=== PATIENT | male | born 1940 | race Caucasian/White ===

== ENCOUNTER 2022-12-05 17:16 | Emergency (ER) | payer MEDICARE, BC ==
[2022-12-05 18:26] LABS: ALT (SGPT) 17 U/L (8-55); AST (SGOT) 20 U/L (5-34); Alkaline Phosphatase 110 U/L (40-110); Anion Gap 12 mmol/L (10-20); BUN (Urea Nitrogen) 21 mg/dL (8.4-25.7); Bilirubin, Total 1.2 mg/dL (0.2-1.2); Calc. Creatinine Clearance 0 mL/min (70-130); Calcium 9.3 mg/dL (7.8-10.44); Carbon Dioxide 24 mmol/L (23-31); Chloride 107 mmol/L (98-107); Estimated GFR 76; Glucose 100 mg/dL (83-110); Magnesium 2.1 mg/dL (1.6-2.6); Potassium 4.5 mmol/L (3.5-5.1); Sodium 138 mmol/L (136-145)
[2022-12-05 18:46] LABS: Hemoglobin 14.8 g/dL (13.5-17.5); Mean Corpuscular HGB CONC 34.5 g/dL (32.0-36.0); Mean Corpuscular Hemoglobin 32.7 pg (27.0-33.0); Mean Corpuscular Volume 94.9 fl (81.2-95.1); Mean Platelet Volume 8.3 fl (7.4-10.4); Platelet Count 184 10x3/uL (150-450); RBC Distribution Width 12.7 % (11.5-14.5); Red Blood Cell (RBC) Count 4.52 10x6/uL (4.32-5.72); White Blood Cell (WBC) Count 6.7 10x3/uL (3.5-10.5)
[2022-12-05 19:26] LABS: Band 4 % (5-11); Eosinophils 1 % (0-10); Lymphocytes 23 % (21-51); Monocytes 3 % (0-10); Neutrophil 53 % (42-75); Reactive Lymphocytes 16 % (0-10)
[2022-12-05 19:29] LABS: Large Platelets SLIGHT; Platelet Clumps SLIGHT; Platelet Morphology Comment Appears Adequate
[2022-12-05 19:30] LABS: MDiff Complete? YES; RBC Morphology Normal
== END 2022-12-05 19:17 | disposition home or self-care (01) ==
LOC: CSHERS 17:16
DX: R07.89 Other chest pain (principal)
CPT/HCPCS: 71045; 80053; 83735; 83880; 84484; 85025; 93005

== ENCOUNTER 2023-08-02 10:35 | Emergency (ER) | payer BC, MEDICARE ==
[2023-08-02] MEDS ORDERED: Iopamidol 300 61% 100 ML VIAL FS ONE (11:41)
[2023-08-02 12:40] LABS: Bilirubin Neg (Negative); Blood, Urine 250 (Negative); Glucose, Urine (Dipstick) Normal (Negative); Ketone, Urine 15 mg/dL (Negative); Leukocyte 25 (Negative); Nitrite Negative (Negative); Protein, Urine (Dipstick) 30 mg/dl (Neg-Trace)
[2023-08-02 12:50] LABS: Hemoglobin 14.2 g/dL (13.5-17.5); Mean Corpuscular HGB CONC 34.6 g/dL (32.0-36.0); Mean Corpuscular Hemoglobin 33.1 pg (27.0-33.0); Mean Corpuscular Volume 95.6 fl (81.2-95.1); Mean Platelet Volume 8.5 fl (7.4-10.4); Platelet Count 153 10x3/uL (150-450); RBC Distribution Width 12.4 % (11.5-14.5); Red Blood Cell (RBC) Count 4.29 10x6/uL (4.32-5.72); White Blood Cell (WBC) Count 12.1 10x3/uL (3.5-10.5)
[2023-08-02 12:53] LABS: ALT (SGPT) 12 U/L (8-55); AST (SGOT) 18 U/L (5-34); Albumin 3.8 g/dL (3.4-4.8); Alkaline Phosphatase 89 U/L (40-110); Anion Gap 15 mmol/L (10-20); BUN (Urea Nitrogen) 19 mg/dL (8.4-25.7); Bilirubin, Total 1.8 mg/dL (0.2-1.2); Calc. Creatinine Clearance 0 mL/min (70-130); Calcium 9.4 mg/dL (7.8-10.44); Carbon Dioxide 19 mmol/L (23-31); Chloride 103 mmol/L (98-107); Estimated GFR 72; Glucose 101 mg/dL (83-110); Potassium 4.2 mmol/L (3.5-5.1); Protein, Total 5.8 g/dL (5.8-8.1); Sodium 133 mmol/L (136-145)
[2023-08-02 13:02] LABS: Clarity Cloudy (Clear)
[2023-08-02 13:16] LABS: CAUTI Indications for Culture Pelvic or flank pain; RBC/HPF Greater than 50 HPF (0-3); Renal Epithelial 0-3 HPF (None Seen); Squamous Epithelial 0-3 HPF (0-3)
[2023-08-02 13:17] LABS: Bacteria/HPF 2+ HPF (None Seen); Calcium Oxalate Crystals Rare HPF (None Seen); Sperm/HPF Rare HPF (None Seen); Urine Culture Reflex No No
[2023-08-02 13:32] LABS: Band 5 % (5-11); Eosinophils 1 % (0-10); Lymphocytes 8 % (21-51); Monocytes 7 % (0-10); Neutrophil 63 % (42-75); Reactive Lymphocytes 16 % (0-10)
[2023-08-02 13:40] LABS: Platelet Adequacy Comment Appears Adequate; RBC Morph Comment Within Normal Limits
[2023-08-02 13:46] LABS: Reflex for Review?? YES
[2023-08-02 13:53] LABS: MDiff Complete? YES
[2023-08-02] MEDS ORDERED: Mineral Oil ENEMA ONE (14:00)
[2023-08-02] MEDS ORDERED: Fleet Saline Enema 133 ML BOT PR SCH (14:15)
== END 2023-08-02 15:22 | disposition home or self-care (01) ==
LOC: CSHERS 10:35
DX: N13.6 Pyonephrosis (principal); K56.41 Fecal impaction; R33.9 Retention of urine, unspecified; I48.91 Unspecified atrial fibrillation; E16.2 Hypoglycemia, unspecified
CPT/HCPCS: 36415; 51702; 74177; 80053; 81001; 85025; 85060; Q9967

== ENCOUNTER 2023-08-07 09:06 | Outpatient (CLI) | payer BC, MEDICARE ==
[~2023-08-07 09:06] MED LIST: Magnevist 469MG/ML 20 ML VIAL ONE
== END 2023-08-07 09:07 | disposition home or self-care (01) ==
LOC: CSHMRI 09:06
PROVIDERS: ATTEND Psychiatry & Neurology Neurology
DX: M48.061 Spinal stenosis, lumbar region without neurogenic claudication (principal); M47.816 Spondylosis without myelopathy or radiculopathy, lumbar region; M51.36 Other intervertebral disc degeneration, lumbar region; M43.17 Spondylolisthesis, lumbosacral region; M48.9 Spondylopathy, unspecified; M48.07 Spinal stenosis, lumbosacral region
CPT/HCPCS: 72158; A9579

== ENCOUNTER 2023-08-11 10:01 | Inpatient (IN) | payer BC, MEDICARE ==
[~2023-08-11 10:01] MED LIST changes: +Iopamidol 300 61% 100 ML VIAL FS ONE; -Magnevist 469MG/ML 20 ML VIAL ONE
[2023-08-11 11:03] LABS: Hematocrit 40.8 % (38.8-50.0); Hemoglobin 14.2 g/dL (13.5-17.5); Mean Corpuscular HGB CONC 34.8 g/dL (32.0-36.0); Mean Corpuscular Hemoglobin 32.6 pg (27.0-33.0); Mean Corpuscular Volume 93.6 fl (81.2-95.1); Mean Platelet Volume 8.3 fl (7.4-10.4); Platelet Count 169 10x3/uL (150-450); RBC Distribution Width 11.9 % (11.5-14.5); Red Blood Cell (RBC) Count 4.36 10x6/uL (4.32-5.72); White Blood Cell (WBC) Count 29.6 10x3/uL (3.5-10.5)
[2023-08-11] MEDS ORDERED: Acetaminophen 325 MG TAB ONE ×2 (11:12→16:20)
[2023-08-11 11:19] LABS: INR-International Normal Ratio 1.2; PTT 31.9 sec (22.0-33.0); Prothrombin Time 12.4 sec (9.5-12.1)
[2023-08-11 11:25] LABS: Platelet Adequacy Comment Appears Adequate; RBC Morph Comment Within Normal Limits
[2023-08-11 11:32] LABS: Band 7 % (5-11)
[2023-08-11 11:33] LABS: ALT (SGPT) 42 U/L (8-55); AST (SGOT) 43 U/L (5-34); Albumin 3.4 g/dL (3.4-4.8); Alkaline Phosphatase 138 U/L (40-110); Anion Gap 12 mmol/L (10-20); BUN (Urea Nitrogen) 16 mg/dL (8.4-25.7); Bilirubin, Total 3.2 mg/dL (0.2-1.2); Calc. Creatinine Clearance 0 mL/min (70-130); Calcium 8.8 mg/dL (7.8-10.44); Carbon Dioxide 23 mmol/L (23-31); Chloride 96 mmol/L (98-107); Estimated GFR 88; Glucose 105 mg/dL (83-110); Lymphocytes 2 % (21-51); Magnesium 1.7 mg/dL (1.6-2.6); Monocytes 4 % (0-10); Neutrophil 80 % (42-75); Potassium 3.8 mmol/L (3.5-5.1); Protein, Total 5.4 g/dL (5.8-8.1); Reactive Lymphocytes 7 % (0-10); Sodium 127 mmol/L (136-145)
[2023-08-11 11:38] LABS: Troponin I Less than 0.010 ng/mL (< 0.028)
[2023-08-11 11:47] LABS: Bilirubin 1+ (Negative); Blood, Urine 250 (Negative); Glucose, Urine (Dipstick) Normal (Negative); Ketone, Urine 50 mg/dL (Negative); Leukocyte 500 (Negative); Nitrite Positive (Negative); Protein, Urine (Dipstick) 100 mg/dl (Neg-Trace); Specific Gravity, Urine 1.015 (1.005-1.030); Urobilinogen 12 mg/dL (Less than 2); pH, Urine 6.5 (5.0-9.0)
[2023-08-11 11:50] LABS: Clarity Cloudy (Clear)
[2023-08-11 11:59] LABS: Bacteria/HPF 3+ HPF (None Seen); CAUTI Indications for Culture Alt mental st,lethar; WBC/HPF Greater Than 50 HPF (0-3)
[2023-08-11 12:02] LABS: Urine Culture Reflex Yes Yes
[2023-08-11 12:09] LABS: Actual Bicarbonate (HCO3v) 23.6 mEq/L (22-28); Base Excess -0.6 mEq/L (-2 - +2); Calcium, Ionized (venous) 1.17 mmol/L (1.16-1.32); Chloride (VBG) 95 mmol/L (98-106); Hematocrit-VBG 45 % (42.0-52.0); Hemoglobin (Hb) 15.3 g/dL (12.6-17.4); Potassium (VBG) 3.68 mmol/L (3.70-5.30); Puncture Site Other Site; RapidComm Collect By LAB; Sodium 129 mmol/L (133-146); pH (venous) 7.414 (7.32-7.43)
[2023-08-11 12:26] LABS: SARS-CoV-2 NAA Rapid Test Not Detected (NotDetected)
[2023-08-11] MEDS ORDERED: Piperacillin/Tazobactam 3.375 GM VIAL ONE (12:26)
[2023-08-11] MEDS ORDERED: Vancomycin 1.5 GRAM/300 ML BAG 1.5 GM in Premix 1 BAG IVPB SCH (12:45)
[2023-08-11] MEDS ORDERED: Acetaminophen 650 MG Suppository PR PRN (16:00)
[2023-08-11] MEDS ORDERED: Senokot S 8.6-50 MG TAB PO PRN (16:00)
[2023-08-11] MEDS ORDERED: HYDROcodone/Acetaminophen 5/325 mg Tablet PO PRN (16:00)
[2023-08-11] MEDS ORDERED: Vancomycin 1 GM in Premix 1 BAG IVPB SCH (16:15)
[2023-08-11] MEDS: Sodium Chloride 0.9% 1,000 ML IV SCH ×2 (16:55→23:16)
[2023-08-11] MEDS ORDERED: Piperacillin/Tazobactam 3.375 GM in Sodium Chloride 0.9% 100 ML IVPB SCH (17:00)
[2023-08-11 17:39] VITALS: BMI 25.1
[2023-08-11] MEDS ORDERED: Meropenem 1 GM in Sodium Chloride 0.9% 100 ML IVPB SCH ×2 (18:00→22:00)
[2023-08-11] MEDS: Famotidine 20 MG TAB PO SCH (20:26)
[2023-08-11] MEDS ORDERED: Communication Order-Pharmacy FS ONE (20:36)
[2023-08-11] MEDS: Flecainide 50 MG TAB PO SCH (20:54)
[2023-08-11] MEDS: Acetaminophen 325 MG TAB PO PRN (22:00)
[2023-08-11] MEDS ORDERED: QUEtiapine 25 MG TAB PO SCH (22:45)
[2023-08-12] MEDS: Meropenem 1 GM in Sodium Chloride 0.9% 100 ML IVPB SCH ×3 (02:11→17:01)
[2023-08-12] MEDS ORDERED: Ziprasidone 20 MG VIAL IM SCH (04:00)
[2023-08-12] MEDS ORDERED: Sterile Water 10 ML VIAL FS PRN (04:00)
[2023-08-12 04:21] LABS: Anion Gap 11 mmol/L (10-20); BUN (Urea Nitrogen) 14 mg/dL (8.4-25.7); Calc. Creatinine Clearance 94 mL/min (70-130); Calcium 8.3 mg/dL (7.8-10.44); Carbon Dioxide 19 mmol/L (23-31); Chloride 101 mmol/L (98-107); Estimated GFR 93; Glucose 79 mg/dL (83-110); Potassium 3.4 mmol/L (3.5-5.1); Sodium 128 mmol/L (136-145)
[2023-08-12 04:30] LABS: Hematocrit 34.7 % (38.8-50.0); Hemoglobin 12.1 g/dL (13.5-17.5); Mean Corpuscular HGB CONC 34.9 g/dL (32.0-36.0); Mean Corpuscular Hemoglobin 32.9 pg (27.0-33.0); Mean Corpuscular Volume 94.3 fl (81.2-95.1); Mean Platelet Volume 8.6 fl (7.4-10.4); Platelet Count 151 10x3/uL (150-450); Red Blood Cell (RBC) Count 3.68 10x6/uL (4.32-5.72); White Blood Cell (WBC) Count 28.6 10x3/uL (3.5-10.5)
[2023-08-12 04:42] LABS: MDiff Complete? YES
[2023-08-12 05:06] LABS: Magnesium 1.7 mg/dL (1.6-2.6)
[2023-08-12 05:57] LABS: Eosinophils 2 % (0-10); Lymphocytes 8 % (21-51); Monocytes 2 % (0-10); Neutrophil 81 % (42-75); Reactive Lymphocytes 7 % (0-10)
[2023-08-12 06:01] LABS: Platelet Adequacy Comment Appears Adequate; RBC Morph Comment Within Normal Limits
[2023-08-12] MEDS ORDERED: Magnesium 2 GM/50 ML(in water) 2 GM in Premix 1 BAG IVPB SCH (06:15)
[2023-08-12] MEDS ORDERED: Electrolyte Replacement Protocol 1 EACH FS SCH (06:15)
[2023-08-12] MEDS: Potassium Chloride 20 MEQ TAB PO SCH ×2 (06:45→12:22)
[2023-08-12] MEDS: Flecainide 50 MG TAB PO SCH ×2 (08:29→21:34)
[2023-08-12] MEDS: Famotidine 20 MG TAB PO SCH ×2 (08:30→21:35)
[2023-08-12] MEDS: Sodium Chloride 0.9% 1,000 ML IV SCH ×2 (09:18→21:35)
[2023-08-12] MEDS ORDERED: Electrolyte Replacement Protocol FS PRN (11:30)
[2023-08-12] MEDS ORDERED: QUEtiapine 25 MG TAB PO SCH (21:00)
[2023-08-13] MEDS: Meropenem 1 GM in Sodium Chloride 0.9% 100 ML IVPB SCH ×3 (03:02→19:43)
[2023-08-13 06:19] LABS: Anion Gap 14 mmol/L (10-20); BUN (Urea Nitrogen) 17 mg/dL (8.4-25.7); Calc. Creatinine Clearance 96 mL/min (70-130); Calcium 8.3 mg/dL (7.8-10.44); Carbon Dioxide 17 mmol/L (23-31); Chloride 106 mmol/L (98-107); Estimated GFR 94; Glucose 67 mg/dL (83-110); Potassium 4.1 mmol/L (3.5-5.1); Sodium 133 mmol/L (136-145)
[2023-08-13 06:22] LABS: Hematocrit 38.1 % (38.8-50.0); Hemoglobin 13.1 g/dL (13.5-17.5); Mean Corpuscular HGB CONC 34.4 g/dL (32.0-36.0); Mean Corpuscular Hemoglobin 32.7 pg (27.0-33.0); Mean Platelet Volume 8.6 fl (7.4-10.4); Platelet Count 159 10x3/uL (150-450); RBC Distribution Width 12.2 % (11.5-14.5); Red Blood Cell (RBC) Count 4.01 10x6/uL (4.32-5.72); White Blood Cell (WBC) Count 18.5 10x3/uL (3.5-10.5)
[2023-08-13 07:26] LABS: Band 4 % (5-11); Eosinophils 4 % (0-10); Lymphocytes 24 % (21-51); Monocytes 5 % (0-10); Reactive Lymphocytes 1 % (0-10)
[2023-08-13 07:27] LABS: Platelet Adequacy Comment Appears Adequate; RBC Morph Comment Within Normal Limits
[2023-08-13] MEDS: Famotidine 20 MG TAB PO SCH ×3 (08:48→20:32)
[2023-08-13] MEDS: Flecainide 50 MG TAB PO SCH ×3 (08:48→20:32)
[2023-08-13] MEDS ORDERED: Amlodipine 5 MG TAB PO SCH (09:00)
[2023-08-13] MEDS: Sodium Chloride 0.9% 1,000 ML IV SCH ×2 (09:11→12:00)
[2023-08-13] MEDS: Apixaban 5 MG TAB PO SCH (09:18)
[2023-08-13] MEDS: hydrALAZINE 20 MG/ML VIAL SLOW IVP PRN (09:51)
[2023-08-13] MEDS ORDERED: Amlodipine 10 MG TAB PO SCH (10:00)
[2023-08-13 14:32] LABS: Hematocrit 37.8 % (38.8-50.0); Hemoglobin 13.1 g/dL (13.5-17.5)
[2023-08-13] MEDS: QUEtiapine 100 MG TAB PO SCH (20:32)
[2023-08-13] MEDS: Atorvastatin Calcium 10 MG TAB PO SCH (20:32)
[2023-08-13] MEDS ORDERED: Vancomycin 1.5 GRAM/300 ML BAG 1.5 GM in Premix 1 BAG IVPB SCH (23:00)
[2023-08-14 01:22] LABS: Hematocrit 34.3 % (38.8-50.0); Hemoglobin 12.1 g/dL (13.5-17.5)
[2023-08-14] MEDS: Meropenem 1 GM in Sodium Chloride 0.9% 100 ML IVPB SCH ×3 (01:38→18:43)
[2023-08-14] MEDS: Sodium Chloride 0.9% 1,000 ML IV SCH ×3 (01:38→21:44)
[2023-08-14 05:28] LABS: Hematocrit 35.6 % (38.8-50.0); Hemoglobin 12.4 g/dL (13.5-17.5); Mean Corpuscular HGB CONC 34.8 g/dL (32.0-36.0); Mean Corpuscular Hemoglobin 32.7 pg (27.0-33.0); Mean Corpuscular Volume 93.9 fl (81.2-95.1); Mean Platelet Volume 8.4 fl (7.4-10.4); Platelet Count 201 10x3/uL (150-450); RBC Distribution Width 12.1 % (11.5-14.5); Red Blood Cell (RBC) Count 3.79 10x6/uL (4.32-5.72); White Blood Cell (WBC) Count 12.4 10x3/uL (3.5-10.5)
[2023-08-14 05:52] LABS: Anion Gap 13 mmol/L (10-20); BUN (Urea Nitrogen) 15 mg/dL (8.4-25.7); Calc. Creatinine Clearance 107 mL/min (70-130); Calcium 8.2 mg/dL (7.8-10.44); Carbon Dioxide 20 mmol/L (23-31); Chloride 106 mmol/L (98-107); Estimated GFR 97; Glucose 72 mg/dL (83-110); Potassium 3.7 mmol/L (3.5-5.1); Sodium 135 mmol/L (136-145)
[2023-08-14 06:25] LABS: MDiff Complete? YES
[2023-08-14 06:28] LABS: Eosinophils 4 % (0-10); Lymphocytes 27 % (21-51); Monocytes 10 % (0-10); Neutrophil 58 % (42-75); Reactive Lymphocytes 1 % (0-10)
[2023-08-14 06:30] LABS: Platelet Adequacy Comment Appears Adequate
[2023-08-14 06:31] LABS: RBC Morph Comment Within Normal Limits
[2023-08-14] MEDS: Flecainide 50 MG TAB PO SCH ×2 (09:34→21:45)
[2023-08-14] MEDS: Amlodipine 10 MG TAB PO SCH (09:35)
[2023-08-14] MEDS: Apixaban 5 MG TAB PO SCH ×2 (09:35→21:45)
[2023-08-14] MEDS: hydrALAZINE 25 MG TAB PO SCH ×3 (09:35→21:45)
[2023-08-14] MEDS: Famotidine 20 MG TAB PO SCH ×2 (09:39→21:45)
[2023-08-14] MEDS: Vancomycin 1 GM in Sodium Chloride 0.9% 250 ML 250 ML IVPB SCH ×2 (12:43→22:24)
[2023-08-14 13:29] LABS: Hematocrit 35.5 % (38.8-50.0); Hemoglobin 12.3 g/dL (13.5-17.5)
[2023-08-14] MEDS: QUEtiapine 100 MG TAB PO SCH (21:45)
[2023-08-14] MEDS: Atorvastatin Calcium 10 MG TAB PO SCH (21:45)
[2023-08-15] MEDS: Meropenem 1 GM in Sodium Chloride 0.9% 100 ML IVPB SCH ×3 (01:16→18:12)
[2023-08-15 05:29] LABS: Anion Gap 12 mmol/L (10-20); BUN (Urea Nitrogen) 12 mg/dL (8.4-25.7); Calc. Creatinine Clearance 115 mL/min (70-130); Carbon Dioxide 18 mmol/L (23-31); Chloride 106 mmol/L (98-107); Estimated GFR 99; Glucose 83 mg/dL (83-110); Potassium 3.4 mmol/L (3.5-5.1); Sodium 133 mmol/L (136-145)
[2023-08-15 05:30] LABS: Hematocrit 34.6 % (38.8-50.0); Hemoglobin 11.9 g/dL (13.5-17.5); Mean Corpuscular HGB CONC 34.4 g/dL (32.0-36.0); Mean Corpuscular Hemoglobin 32.4 pg (27.0-33.0); Mean Corpuscular Volume 94.3 fl (81.2-95.1); Platelet Count 193 10x3/uL (150-450); RBC Distribution Width 12.3 % (11.5-14.5); Red Blood Cell (RBC) Count 3.67 10x6/uL (4.32-5.72); White Blood Cell (WBC) Count 10.2 10x3/uL (3.5-10.5)
[2023-08-15 06:18] LABS: MDiff Complete? YES
[2023-08-15 06:22] LABS: Band 9 % (5-11); Eosinophils 3 % (0-10); Lymphocytes 29 % (21-51); Monocytes 6 % (0-10); Neutrophil 49 % (42-75); Reactive Lymphocytes 4 % (0-10)
[2023-08-15 06:25] LABS: Platelet Adequacy Comment Appears Adequate; RBC Morph Comment Within Normal Limits
[2023-08-15] MEDS: Sodium Chloride 0.9% 1,000 ML IV SCH ×2 (07:28→11:59)
[2023-08-15] MEDS: Apixaban 5 MG TAB PO SCH ×2 (08:55→21:31)
[2023-08-15] MEDS: Amlodipine 10 MG TAB PO SCH (08:55)
[2023-08-15] MEDS: Flecainide 50 MG TAB PO SCH ×2 (08:55→21:31)
[2023-08-15] MEDS: Famotidine 20 MG TAB PO SCH ×2 (08:55→21:32)
[2023-08-15] MEDS: hydrALAZINE 25 MG TAB PO SCH ×3 (08:55→21:31)
[2023-08-15] MEDS ORDERED: Potassium Chloride 20 MEQ TAB PO SCH (09:00)
[2023-08-15 10:07] LABS: Vancomycin, Trough 9.7 ug/mL
[2023-08-15] MEDS ORDERED: VANCOMYCIN 1.25 GM/250 ML BAG 1.25 GM in Premix 1 BAG IVPB SCH (11:00)
[2023-08-15] MEDS ORDERED: QUEtiapine 25 MG TAB PO SCH (21:00)
[2023-08-15] MEDS: Atorvastatin Calcium 10 MG TAB PO SCH (21:31)
[2023-08-16] MEDS: Meropenem 1 GM in Sodium Chloride 0.9% 100 ML IVPB SCH ×3 (02:05→18:01)
[2023-08-16] MEDS: Acetaminophen 325 MG TAB PO PRN (04:04)
[2023-08-16 06:37] LABS: ALT (SGPT) 31 U/L (8-55); AST (SGOT) 32 U/L (5-34); Albumin 2.6 g/dL (3.4-4.8); Alkaline Phosphatase 86 U/L (40-110); Anion Gap 12 mmol/L (10-20); BUN (Urea Nitrogen) 10 mg/dL (8.4-25.7); Bilirubin, Total 1.1 mg/dL (0.2-1.2); Calc. Creatinine Clearance 105 mL/min (70-130); Calcium 8.3 mg/dL (7.8-10.44); Carbon Dioxide 23 mmol/L (23-31); Chloride 102 mmol/L (98-107); Estimated GFR 97; Globulin 1.8 g/dL (2.4-3.5); Glucose 103 mg/dL (83-110); Potassium 3.6 mmol/L (3.5-5.1); Protein, Total 4.4 g/dL (5.8-8.1); Sodium 133 mmol/L (136-145)
[2023-08-16 06:54] LABS: Hematocrit 35.8 % (38.8-50.0); Hemoglobin 12.6 g/dL (13.5-17.5); Mean Corpuscular HGB CONC 35.2 g/dL (32.0-36.0); Mean Corpuscular Hemoglobin 32.9 pg (27.0-33.0); Mean Corpuscular Volume 93.5 fl (81.2-95.1); Mean Platelet Volume 8.6 fl (7.4-10.4); Platelet Count 238 10x3/uL (150-450); Red Blood Cell (RBC) Count 3.83 10x6/uL (4.32-5.72)
[2023-08-16] MEDS: Famotidine 20 MG TAB PO SCH ×2 (08:10→22:26)
[2023-08-16] MEDS: Amlodipine 10 MG TAB PO SCH (08:10)
[2023-08-16] MEDS: Flecainide 50 MG TAB PO SCH ×2 (08:10→22:27)
[2023-08-16] MEDS: Apixaban 5 MG TAB PO SCH ×2 (08:10→22:27)
[2023-08-16] MEDS: hydrALAZINE 25 MG TAB PO SCH ×3 (08:10→22:27)
[2023-08-16 08:20] LABS: MDiff Complete? YES
[2023-08-16 10:36] LABS: Eosinophils 2 % (0-10); Monocytes 5 % (0-10)
[2023-08-16 10:39] LABS: Band 1 % (5-11); Lymphocytes 27 % (21-51); Neutrophil 62 % (42-75); Reactive Lymphocytes 3 % (0-10)
[2023-08-16 10:40] LABS: Platelet Adequacy Comment Appears Adequate; RBC Morph Comment Within Normal Limits
[2023-08-16 21:57] LABS: Vancomycin, Trough 4.5 ug/mL
[2023-08-16] MEDS: Atorvastatin Calcium 10 MG TAB PO SCH (22:27)
[2023-08-16] MEDS ORDERED: Haloperidol Lactate 5 MG/ML VIAL IM SCH (23:45)
[2023-08-17] MEDS: Meropenem 1 GM in Sodium Chloride 0.9% 100 ML IVPB SCH ×3 (02:33→17:03)
[2023-08-17] MEDS: hydrALAZINE 20 MG/ML VIAL SLOW IVP PRN (04:55)
[2023-08-17 06:19] LABS: Hematocrit 36.8 % (38.8-50.0); Platelet Count 298 10x3/uL (150-450)
[2023-08-17] MEDS: hydrALAZINE 25 MG TAB PO SCH ×3 (09:41→22:40)
[2023-08-17] MEDS: Flecainide 50 MG TAB PO SCH ×2 (09:42→22:39)
[2023-08-17] MEDS: Famotidine 20 MG TAB PO SCH ×2 (09:43→22:40)
[2023-08-17] MEDS: Amlodipine 10 MG TAB PO SCH (09:43)
[2023-08-17] MEDS: Folic Acid 1 MG TAB PO SCH (09:44)
[2023-08-17] MEDS: Thiamine 100 MG TAB PO SCH (09:44)
[2023-08-17] MEDS: Apixaban 5 MG TAB PO SCH ×3 (09:44→23:30)
[2023-08-17] MEDS: Atorvastatin Calcium 10 MG TAB PO SCH (22:40)
[2023-08-18] MEDS: Meropenem 1 GM in Sodium Chloride 0.9% 100 ML IVPB SCH ×3 (02:43→18:25)
[2023-08-18] MEDS: hydrALAZINE 20 MG/ML VIAL SLOW IVP PRN ×2 (02:48→16:01)
[2023-08-18] MEDS: Famotidine 20 MG TAB PO SCH ×3 (09:09→23:19)
[2023-08-18] MEDS: hydrALAZINE 25 MG TAB PO SCH ×5 (09:09→23:19)
[2023-08-18] MEDS: Flecainide 50 MG TAB PO SCH ×4 (09:09→23:19)
[2023-08-18] MEDS: Atorvastatin Calcium 10 MG TAB PO SCH ×2 (09:10→23:19)
[2023-08-18] MEDS: Amlodipine 10 MG TAB PO SCH ×2 (11:05→11:15)
[2023-08-18] MEDS: Apixaban 5 MG TAB PO SCH ×3 (11:05→23:18)
[2023-08-18] MEDS: Folic Acid 1 MG TAB PO SCH (11:15)
[2023-08-18] MEDS: Thiamine 100 MG TAB PO SCH (11:15)
[2023-08-18] MEDS ORDERED: Multivitamins, Adult 10 ML, Folic Acid 1 MG, Thiamine HCl 100 MG in Dextrose 5 %-0.45 %... IV SCH (13:00)
[2023-08-18] MEDS: D5W-AA 4.25% with LYTES 1,000 ML IV SCH (15:00)
[2023-08-19] MEDS: Meropenem 1 GM in Sodium Chloride 0.9% 100 ML IVPB SCH ×3 (02:47→18:01)
[2023-08-19] MEDS: D5W-AA 4.25% with LYTES 1,000 ML IV SCH ×2 (04:39→16:42)
[2023-08-19] MEDS: Famotidine 20 MG TAB PO SCH ×2 (10:14→22:53)
[2023-08-19] MEDS: Amlodipine 10 MG TAB PO SCH (10:14)
[2023-08-19] MEDS: Apixaban 5 MG TAB PO SCH ×2 (10:14→22:53)
[2023-08-19] MEDS: Flecainide 50 MG TAB PO SCH ×2 (10:15→22:53)
[2023-08-19] MEDS: hydrALAZINE 25 MG TAB PO SCH ×3 (10:15→21:15)
[2023-08-19] MEDS: Atorvastatin Calcium 10 MG TAB PO SCH (22:53)
[2023-08-20] MEDS: Meropenem 1 GM in Sodium Chloride 0.9% 100 ML IVPB SCH ×3 (02:19→17:31)
[2023-08-20 04:41] LABS: ALT (SGPT) 19 U/L (8-55); AST (SGOT) 21 U/L (5-34); Albumin 2.7 g/dL (3.4-4.8); Alkaline Phosphatase 73 U/L (40-110); Anion Gap 9 mmol/L (10-20); BUN (Urea Nitrogen) 17 mg/dL (8.4-25.7); CRP (Inflammatory) 1.64 mg/dL (= or < 0.5); Calc. Creatinine Clearance 105 mL/min (70-130); Calcium 8.4 mg/dL (7.8-10.44); Carbon Dioxide 26 mmol/L (23-31); Chloride 103 mmol/L (98-107); Estimated GFR 97; Globulin 1.6 g/dL (2.4-3.5); Glucose 121 mg/dL (83-110); Phosphorus 3.2 mg/dL (2.3-4.7); Potassium 3.9 mmol/L (3.5-5.1); Protein, Total 4.3 g/dL (5.8-8.1); Sodium 134 mmol/L (136-145)
[2023-08-20 04:43] LABS: Hematocrit 32.8 % (38.8-50.0); Hemoglobin 11.5 g/dL (13.5-17.5); Mean Corpuscular HGB CONC 35.1 g/dL (32.0-36.0); Mean Platelet Volume 8.3 fl (7.4-10.4); Platelet Count 342 10x3/uL (150-450); RBC Distribution Width 12.3 % (11.5-14.5); Red Blood Cell (RBC) Count 3.49 10x6/uL (4.32-5.72); White Blood Cell (WBC) Count 12.1 10x3/uL (3.5-10.5)
[2023-08-20 04:44] LABS: MDiff Complete? YES
[2023-08-20] MEDS: hydrALAZINE 20 MG/ML VIAL SLOW IVP PRN (05:29)
[2023-08-20] MEDS: D5W-AA 4.25% with LYTES 1,000 ML IV SCH ×2 (05:44→12:03)
[2023-08-20 06:05] LABS: Band 1 % (5-11); Eosinophils 4 % (0-10); Lymphocytes 39 % (21-51); Monocytes 4 % (0-10); Neutrophil 48 % (42-75); Reactive Lymphocytes 4 % (0-10)
[2023-08-20 06:13] LABS: Platelet Adequacy Comment Appears Adequate; RBC Morph Comment Within Normal Limits
[2023-08-20] MEDS ORDERED: Magnesium 2 GM/50 ML(in water) 2 GM in Premix 1 BAG IVPB SCH (08:00)
[2023-08-20] MEDS: hydrALAZINE 25 MG TAB PO SCH ×3 (10:15→21:52)
[2023-08-20] MEDS: Famotidine 20 MG TAB PO SCH ×2 (10:16→21:51)
[2023-08-20] MEDS: Apixaban 5 MG TAB PO SCH ×2 (10:16→21:50)
[2023-08-20] MEDS: Flecainide 50 MG TAB PO SCH ×2 (10:16→21:51)
[2023-08-20] MEDS: Amlodipine 10 MG TAB PO SCH (10:16)
[2023-08-20] MEDS: Atorvastatin Calcium 10 MG TAB PO SCH (21:51)
[2023-08-21] MEDS: Meropenem 1 GM in Sodium Chloride 0.9% 100 ML IVPB SCH ×3 (01:41→17:22)
[2023-08-21] MEDS: D5W-AA 4.25% with LYTES 1,000 ML IV SCH (04:02)
[2023-08-21] MEDS: Famotidine 20 MG TAB PO SCH ×2 (08:34→22:42)
[2023-08-21] MEDS: hydrALAZINE 25 MG TAB PO SCH ×3 (08:34→22:41)
[2023-08-21] MEDS: Flecainide 50 MG TAB PO SCH ×2 (08:35→22:41)
[2023-08-21] MEDS: Amlodipine 10 MG TAB PO SCH (08:35)
[2023-08-21] MEDS: Apixaban 5 MG TAB PO SCH ×2 (08:35→22:42)
[2023-08-21] MEDS: Atorvastatin Calcium 10 MG TAB PO SCH (22:42)
[2023-08-22] MEDS: Meropenem 1 GM in Sodium Chloride 0.9% 100 ML IVPB SCH ×3 (01:23→16:58)
[2023-08-22 05:37] LABS: Anion Gap 11 mmol/L (10-20); BUN (Urea Nitrogen) 19 mg/dL (8.4-25.7); CRP (Inflammatory) 0.84 mg/dL (= or < 0.5); Calc. Creatinine Clearance 94 mL/min (70-130); Calcium 8.6 mg/dL (7.8-10.44); Carbon Dioxide 26 mmol/L (23-31); Chloride 102 mmol/L (98-107); Estimated GFR 93; Glucose 93 mg/dL (83-110); Sodium 135 mmol/L (136-145)
[2023-08-22 05:58] LABS: Hematocrit 36.3 % (38.8-50.0); Hemoglobin 12.7 g/dL (13.5-17.5); Mean Corpuscular Hemoglobin 33.6 pg (27.0-33.0); Mean Platelet Volume 8.4 fl (7.4-10.4); Platelet Count 383 10x3/uL (150-450); RBC Distribution Width 12.5 % (11.5-14.5); Red Blood Cell (RBC) Count 3.78 10x6/uL (4.32-5.72); White Blood Cell (WBC) Count 12.1 10x3/uL (3.5-10.5)
[2023-08-22 05:59] LABS: MDiff Complete? YES
[2023-08-22 06:46] LABS: Band 5 % (5-11); Lymphocytes 28 % (21-51); Monocytes 9 % (0-10); Neutrophil 57 % (42-75); Reactive Lymphocytes 1 % (0-10)
[2023-08-22 06:47] LABS: Platelet Adequacy Comment Appears Adequate; RBC Morph Comment Within Normal Limits
[2023-08-22] MEDS: Amlodipine 10 MG TAB PO SCH (08:51)
[2023-08-22] MEDS: hydrALAZINE 25 MG TAB PO SCH ×3 (08:51→22:31)
[2023-08-22] MEDS: Famotidine 20 MG TAB PO SCH ×2 (08:51→22:29)
[2023-08-22] MEDS: Apixaban 5 MG TAB PO SCH ×2 (08:51→22:30)
[2023-08-22] MEDS: Flecainide 50 MG TAB PO SCH ×2 (08:51→22:30)
[2023-08-22] MEDS ORDERED: Lorazepam 2 MG/ML VIAL ONE (16:27)
[2023-08-22] MEDS ORDERED: Lorazepam 2 MG/ML VIAL SLOW IVP SCH (16:45)
[2023-08-22] MEDS: Atorvastatin Calcium 10 MG TAB PO SCH (22:30)
[2023-08-23] MEDS: Meropenem 1 GM in Sodium Chloride 0.9% 100 ML IVPB SCH ×3 (01:38→17:11)
[2023-08-23 04:33] LABS: Hematocrit 35.3 % (38.8-50.0); Hemoglobin 12.2 g/dL (13.5-17.5); Platelet Count 341 10x3/uL (150-450)
[2023-08-23] MEDS: Famotidine 20 MG TAB PO SCH ×2 (09:27→21:23)
[2023-08-23] MEDS: Flecainide 50 MG TAB PO SCH ×2 (09:27→21:23)
[2023-08-23] MEDS: hydrALAZINE 25 MG TAB PO SCH ×3 (09:27→21:24)
[2023-08-23] MEDS: Amlodipine 10 MG TAB PO SCH (09:27)
[2023-08-23] MEDS: Apixaban 5 MG TAB PO SCH ×2 (09:27→21:23)
[2023-08-23] MEDS ORDERED: Sodium Chloride 0.9% 1,000 ML IV SCH (09:30)
[2023-08-23] MEDS: Atorvastatin Calcium 10 MG TAB PO SCH (21:23)
[2023-08-24] MEDS: Meropenem 1 GM in Sodium Chloride 0.9% 100 ML IVPB SCH ×3 (01:24→18:05)
[2023-08-24] MEDS: Flecainide 50 MG TAB PO SCH ×2 (08:07→21:28)
[2023-08-24] MEDS: Famotidine 20 MG TAB PO SCH ×2 (08:08→21:29)
[2023-08-24] MEDS: Apixaban 5 MG TAB PO SCH ×2 (08:08→21:29)
[2023-08-24] MEDS: hydrALAZINE 25 MG TAB PO SCH ×3 (08:08→21:29)
[2023-08-24] MEDS: Amlodipine 10 MG TAB PO SCH (08:09)
[2023-08-24] MEDS: Atorvastatin Calcium 10 MG TAB PO SCH (21:28)
[2023-08-25] MEDS: Acetaminophen 325 MG TAB PO PRN (00:59)
[2023-08-25] MEDS: Meropenem 1 GM in Sodium Chloride 0.9% 100 ML IVPB SCH ×3 (01:00→17:05)
[2023-08-25] MEDS: Flecainide 50 MG TAB PO SCH ×2 (08:33→23:23)
[2023-08-25] MEDS: Apixaban 5 MG TAB PO SCH ×2 (08:33→23:22)
[2023-08-25] MEDS: Amlodipine 10 MG TAB PO SCH (08:33)
[2023-08-25] MEDS: hydrALAZINE 25 MG TAB PO SCH ×3 (08:33→23:24)
[2023-08-25] MEDS: Famotidine 20 MG TAB PO SCH ×2 (08:41→23:23)
[2023-08-25] MEDS: Haloperidol 1 MG TAB PO SCH (23:20)
[2023-08-25] MEDS: Atorvastatin Calcium 10 MG TAB PO SCH (23:23)
[2023-08-26] MEDS: Meropenem 1 GM in Sodium Chloride 0.9% 100 ML IVPB SCH ×3 (02:28→17:33)
[2023-08-26 04:25] LABS: Hematocrit 33.7 % (38.8-50.0); Hemoglobin 11.8 g/dL (13.5-17.5); Platelet Count 300 10x3/uL (150-450)
[2023-08-26] MEDS: hydrALAZINE 25 MG TAB PO SCH ×2 (08:22→15:38)
[2023-08-26] MEDS: Amlodipine 10 MG TAB PO SCH (08:22)
[2023-08-26] MEDS: Flecainide 50 MG TAB PO SCH ×2 (08:26→22:24)
[2023-08-26] MEDS: Apixaban 5 MG TAB PO SCH ×2 (08:26→22:24)
[2023-08-26] MEDS: Famotidine 20 MG TAB PO SCH ×2 (08:26→22:23)
[2023-08-26] MEDS: Ciprofloxacin 500 MG TAB PO SCH (22:22)
[2023-08-26] MEDS: Haloperidol 1 MG TAB PO SCH (22:23)
[2023-08-26] MEDS: Atorvastatin Calcium 10 MG TAB PO SCH (22:23)
[2023-08-27] MEDS ORDERED: Haloperidol Lactate 5 MG/ML VIAL IM SCH (01:30)
[2023-08-27] MEDS ORDERED: Ziprasidone 20 MG VIAL IM SCH (03:00)
[2023-08-27] MEDS ORDERED: Sterile Water 10 ML ONE (03:13)
[2023-08-27] MEDS: Ciprofloxacin 500 MG TAB PO SCH ×2 (05:17→19:34)
[2023-08-27] MEDS: Apixaban 5 MG TAB PO SCH (08:24)
[2023-08-27] MEDS: Flecainide 50 MG TAB PO SCH (08:24)
[2023-08-27] MEDS: Famotidine 20 MG TAB PO SCH ×2 (08:24→19:34)
[2023-08-27] MEDS: hydrALAZINE 20 MG/ML VIAL SLOW IVP PRN (17:23)
[2023-08-27] MEDS: Atorvastatin Calcium 10 MG TAB PO SCH (19:34)
[2023-08-28] MEDS: Ciprofloxacin 500 MG TAB PO SCH ×2 (06:15→20:47)
[2023-08-28] MEDS: Famotidine 20 MG TAB PO SCH ×2 (09:24→20:47)
[2023-08-28] MEDS: Atorvastatin Calcium 10 MG TAB PO SCH (20:48)
[2023-08-29 05:58] LABS: Anion Gap 12 mmol/L (10-20); BUN (Urea Nitrogen) 20 mg/dL (8.4-25.7); Calc. Creatinine Clearance 76 mL/min (70-130); Calcium 9.1 mg/dL (7.8-10.44); Carbon Dioxide 24 mmol/L (23-31); Chloride 102 mmol/L (98-107); Estimated GFR 88; Glucose 99 mg/dL (83-110); Magnesium 1.8 mg/dL (1.6-2.6); Potassium 3.6 mmol/L (3.5-5.1); Sodium 134 mmol/L (136-145)
[2023-08-29 06:21] LABS: Hematocrit 33.2 % (38.8-50.0); Hemoglobin 11.4 g/dL (13.5-17.5); Mean Corpuscular HGB CONC 34.3 g/dL (32.0-36.0); Mean Corpuscular Hemoglobin 32.7 pg (27.0-33.0); Mean Corpuscular Volume 95.1 fl (81.2-95.1); Mean Platelet Volume 8.4 fl (7.4-10.4); Platelet Count 310 10x3/uL (150-450); RBC Distribution Width 12.8 % (11.5-14.5); Red Blood Cell (RBC) Count 3.49 10x6/uL (4.32-5.72); White Blood Cell (WBC) Count 10.4 10x3/uL (3.5-10.5)
[2023-08-29] MEDS: Ciprofloxacin 500 MG TAB PO SCH ×2 (06:33→21:02)
[2023-08-29 06:38] LABS: MDiff Complete? YES
[2023-08-29 08:23] LABS: Band 5 % (5-11); Eosinophils 8 % (0-10); Lymphocytes 19 % (21-51); Monocytes 12 % (0-10); Myelocyte 2 % (0-0)
[2023-08-29 08:30] LABS: Neutrophil 36 % (42-75); Reactive Lymphocytes 16 % (0-10)
[2023-08-29 08:31] LABS: RBC Morph Comment Within Normal Limits
[2023-08-29 08:32] LABS: Platelet Adequacy Comment Appears Adequate; Smudge Cells SLIGHT
[2023-08-29] MEDS: Famotidine 20 MG TAB PO SCH ×2 (08:49→21:02)
[2023-08-29] MEDS ORDERED: Magnesium 2 GM/50 ML(in water) 2 GM in Premix 1 BAG IVPB SCH ×2 (09:00→11:30)
[2023-08-29] MEDS ORDERED: Potassium Bicarbonate/Cit Ac 20 MEQ TAB PO SCH (12:00)
[2023-08-29] MEDS: Lorazepam 2 MG/ML VIAL SLOW IVP PRN (21:02)
[2023-08-29] MEDS: Atorvastatin Calcium 10 MG TAB PO SCH (21:03)
[2023-08-30] MEDS: Lorazepam 2 MG/ML VIAL SLOW IVP PRN (05:19)
[2023-08-30] MEDS: Ciprofloxacin 500 MG TAB PO SCH ×2 (05:19→21:30)
[2023-08-30] MEDS ORDERED: Potassium Chloride 20 MEQ TAB PO SCH (09:00)
[2023-08-30] MEDS: Famotidine 20 MG TAB PO SCH ×2 (10:18→21:30)
[2023-08-30] MEDS: Atorvastatin Calcium 10 MG TAB PO SCH (21:30)
[2023-08-31 05:40] LABS: Anion Gap 11 mmol/L (10-20); BUN (Urea Nitrogen) 15 mg/dL (8.4-25.7); Calc. Creatinine Clearance 79 mL/min (70-130); Carbon Dioxide 24 mmol/L (23-31); Chloride 104 mmol/L (98-107); Estimated GFR 89; Glucose 89 mg/dL (83-110); Magnesium 1.8 mg/dL (1.6-2.6); Potassium 3.9 mmol/L (3.5-5.1); Sodium 135 mmol/L (136-145)
[2023-08-31] MEDS: Ciprofloxacin 500 MG TAB PO SCH ×2 (06:07→23:09)
[2023-08-31 07:05] LABS: Eosinophils 5 % (0-10); Hematocrit 35.4 % (38.8-50.0); Hemoglobin 11.9 g/dL (13.5-17.5); Lymphocytes 24 % (21-51); Mean Corpuscular HGB CONC 33.6 g/dL (32.0-36.0); Mean Corpuscular Hemoglobin 32.5 pg (27.0-33.0); Mean Corpuscular Volume 96.7 fl (81.2-95.1); Mean Platelet Volume 8.4 fl (7.4-10.4); Monocytes 6 % (0-10); Neutrophil 60 % (42-75); Platelet Count 228 10x3/uL (150-450); RBC Distribution Width 12.8 % (11.5-14.5); Reactive Lymphocytes 5 % (0-10); Red Blood Cell (RBC) Count 3.66 10x6/uL (4.32-5.72); White Blood Cell (WBC) Count 10.1 10x3/uL (3.5-10.5)
[2023-08-31 07:07] LABS: Platelet Adequacy Comment Appears Adequate; RBC Morph Comment Within Normal Limits
[2023-08-31 07:22] LABS: MDiff Complete? YES
[2023-08-31] MEDS: Famotidine 20 MG TAB PO SCH ×2 (09:44→23:10)
[2023-08-31] MEDS ORDERED: Apixaban 5 MG TAB PO SCH (11:00)
[2023-08-31] MEDS ORDERED: Magnesium 2 GM/50 ML(in water) 2 GM in Premix 1 BAG IVPB SCH (11:00)
[2023-08-31] MEDS: Acetaminophen 325 MG TAB PO PRN (23:05)
[2023-08-31] MEDS: Multivit, Therapeutic 1 TAB PO SCH (23:06)
[2023-08-31] MEDS: Apixaban 5 MG TAB PO SCH (23:10)
[2023-08-31] MEDS: Atorvastatin Calcium 10 MG TAB PO SCH (23:10)
[2023-08-31] MEDS ORDERED: Melatonin 3 MG TAB PO SCH (23:30)
[2023-09-01 04:44] LABS: Anion Gap 11 mmol/L (10-20); BUN (Urea Nitrogen) 14 mg/dL (8.4-25.7); Calc. Creatinine Clearance 78 mL/min (70-130); Calcium 9.2 mg/dL (7.8-10.44); Carbon Dioxide 23 mmol/L (23-31); Chloride 107 mmol/L (98-107); Estimated GFR 88; Glucose 103 mg/dL (83-110); Magnesium 2.1 mg/dL (1.6-2.6); Phosphorus 3.5 mg/dL (2.3-4.7); Potassium 4.1 mmol/L (3.5-5.1); Sodium 137 mmol/L (136-145)
[2023-09-01 06:17] LABS: Band 2 % (5-11); Eosinophils 1 % (0-10); Lymphocytes 37 % (21-51); Monocytes 7 % (0-10); Neutrophil 49 % (42-75); Platelet Adequacy Comment Appears Adequate; RBC Morph Comment Within Normal Limits; Reactive Lymphocytes 4 % (0-10)
[2023-09-01 06:18] LABS: Small Platelets SLIGHT HPF (0-15)
[2023-09-01 06:22] LABS: Hematocrit 35.2 % (38.8-50.0); Mean Corpuscular HGB CONC 34.1 g/dL (32.0-36.0); Mean Corpuscular Hemoglobin 32.3 pg (27.0-33.0); Mean Corpuscular Volume 94.9 fl (81.2-95.1); Mean Platelet Volume 8.2 fl (7.4-10.4); Platelet Count 204 10x3/uL (150-450); RBC Distribution Width 12.6 % (11.5-14.5); Red Blood Cell (RBC) Count 3.71 10x6/uL (4.32-5.72); White Blood Cell (WBC) Count 10.7 10x3/uL (3.5-10.5)
[2023-09-01] MEDS: Ciprofloxacin 500 MG TAB PO SCH (06:41)
[2023-09-01 06:55] LABS: MDiff Complete? YES
[2023-09-01] MEDS ORDERED: Lorazepam 0.5 MG TAB PO SCH (07:30)
[2023-09-01] MEDS ORDERED: QUEtiapine 25 MG TAB PO SCH (07:45)
[2023-09-01] MEDS: Cefepime 1 GM in Sodium Chloride 0.9% 100 ML IVPB SCH ×2 (08:07→22:51)
[2023-09-01] MEDS: Apixaban 5 MG TAB PO SCH (08:07)
[2023-09-01] MEDS: Famotidine 20 MG TAB PO SCH ×2 (08:07→22:51)
[2023-09-01] MEDS ORDERED: Cyanocobalamin (Vitamin B-12) 1,000 MCG TAB PO SCH (21:00)
[2023-09-01] MEDS ORDERED: Melatonin 3 MG TAB PO SCH (21:00)
[2023-09-01] MEDS: Multivit, Therapeutic 1 TAB PO SCH (22:51)
[2023-09-01] MEDS: Atorvastatin Calcium 10 MG TAB PO SCH (22:51)
[2023-09-01] MEDS: Acetaminophen 325 MG TAB PO PRN (22:52)
[2023-09-02 05:47] LABS: Anion Gap 10 mmol/L (10-20); BUN (Urea Nitrogen) 16 mg/dL (8.4-25.7); Calc. Creatinine Clearance 79 mL/min (70-130); Calcium 9.1 mg/dL (7.8-10.44); Carbon Dioxide 24 mmol/L (23-31); Chloride 105 mmol/L (98-107); Estimated GFR 89; Glucose 85 mg/dL (83-110); Potassium 3.6 mmol/L (3.5-5.1); Sodium 135 mmol/L (136-145)
[2023-09-02] MEDS ORDERED: LevoFLOXacin 500 MG TAB PO SCH (06:00)
[2023-09-02 06:21] LABS: MDiff Complete? YES
[2023-09-02 06:24] LABS: Band 2 % (5-11); Eosinophils 7 % (0-10); Lymphocytes 41 % (21-51); Monocytes 3 % (0-10); Myelocyte 1 % (0-0); Neutrophil 37 % (42-75); Reactive Lymphocytes 9 % (0-10)
[2023-09-02 06:25] LABS: Hematocrit 34.9 % (38.8-50.0); Hemoglobin 11.7 g/dL (13.5-17.5); Mean Corpuscular HGB CONC 33.5 g/dL (32.0-36.0); Mean Corpuscular Hemoglobin 32.4 pg (27.0-33.0); Mean Corpuscular Volume 96.7 fl (81.2-95.1); Mean Platelet Volume 8.4 fl (7.4-10.4); Platelet Adequacy Comment Platelets Normal; Platelet Count 206 10x3/uL (150-450); RBC Distribution Width 12.7 % (11.5-14.5); RBC Morph Comment Within Normal Limits; Red Blood Cell (RBC) Count 3.61 10x6/uL (4.32-5.72); White Blood Cell (WBC) Count 8.9 10x3/uL (3.5-10.5)
[2023-09-02] MEDS: Famotidine 20 MG TAB PO SCH (08:37)
[2023-09-02 13:10] VITALS: BP 99/58; TEMP 97.6
== END 2023-09-02 17:15 | disposition home health service (06) | DRG 871 ==
LOC: CSHERS 10:01 → CSHTELE 15:36
PROVIDERS: ADMIT Internal Medicine; ATTEND Internal Medicine
DX: A41.52 Sepsis due to Pseudomonas (principal); G93.41 Metabolic encephalopathy; T83.511A Infection and inflammatory reaction due to indwelling urethral catheter, initial encounter; N41.0 Acute prostatitis; E87.1 Hypo-osmolality and hyponatremia; N41.2 Abscess of prostate; E44.0 Moderate protein-calorie malnutrition; E78.5 Hyperlipidemia, unspecified; R91.1 Solitary pulmonary nodule; B96.89 Other specified bacterial agents as the cause of diseases classified elsewhere; R31.9 Hematuria, unspecified; M48.07 Spinal stenosis, lumbosacral region; Y83.8 Other surgical procedures as the cause of abnormal reaction of the patient, or of later complication, without mention of misadventure at the time of the procedure; I48.0 Paroxysmal atrial fibrillation; E83.42 Hypomagnesemia; R31.0 Gross hematuria; R65.20 Severe sepsis without septic shock; R33.9 Retention of urine, unspecified; R91.8 Other nonspecific abnormal finding of lung field; D53.9 Nutritional anemia, unspecified; E53.1 Pyridoxine deficiency; Z68.25 Body mass index [BMI] 25.0-25.9, adult; Z79.01 Long term (current) use of anticoagulants; Z98.890 Other specified postprocedural states; Z79.899 Other long term (current) drug therapy
CPT/HCPCS: 36415; 36416; 70450; 72125; 74177; 80048; 80053; 80202; 81001; 82607; 82805; 83605; 83735; 83880; 84100; 84207; 84484; 85014; 85018; 85025; 85049; 85610; 85730; 86140; 87040; 87077; 87086; 87149; 87186; 93005; 93010; 96374; 96375; J0360; J0692; J1630; J1650; J2060; J2185; J2543; J3370; J3475; J3486; J3490; J7050; Q9967

== ENCOUNTER 2023-09-06 18:52 | Inpatient (IN) | payer BC, MEDICARE ==
[2023-09-06 20:00] LABS: Hematocrit 35.3 % (38.8-50.0); Hemoglobin 11.9 g/dL (13.5-17.5); Mean Corpuscular HGB CONC 33.7 g/dL (32.0-36.0); Mean Corpuscular Volume 94.9 fl (81.2-95.1); Mean Platelet Volume 8.1 fl (7.4-10.4); Platelet Count 191 10x3/uL (150-450); RBC Distribution Width 13.1 % (11.5-14.5); Red Blood Cell (RBC) Count 3.72 10x6/uL (4.32-5.72); White Blood Cell (WBC) Count 11.2 10x3/uL (3.5-10.5)
[2023-09-06 20:01] LABS: MDiff Complete? YES
[2023-09-06 20:02] LABS: INR-International Normal Ratio 1.2; PTT 28.5 sec (22.0-33.0); Prothrombin Time 12.5 sec (9.5-12.1)
[2023-09-06 20:08] LABS: ALT (SGPT) 20 U/L (8-55); AST (SGOT) 37 U/L (5-34); Albumin 3.1 g/dL (3.4-4.8); Alkaline Phosphatase 63 U/L (40-110); Anion Gap 14 mmol/L (10-20); BUN (Urea Nitrogen) 21 mg/dL (8.4-25.7); Bilirubin, Total 1.3 mg/dL (0.2-1.2); Calc. Creatinine Clearance 0 mL/min (70-130); Calcium 8.7 mg/dL (7.8-10.44); Carbon Dioxide 20 mmol/L (23-31); Chloride 107 mmol/L (98-107); Estimated GFR 76; Globulin 1.9 g/dL (2.4-3.5); Glucose 94 mg/dL (83-110); Lipase 6 U/L (8-78); Magnesium 1.6 mg/dL (1.6-2.6); Potassium 3.6 mmol/L (3.5-5.1); Sodium 137 mmol/L (136-145)
[2023-09-06 20:14] LABS: Troponin I 0.019 ng/mL (< 0.028)
[2023-09-06 20:17] LABS: Bilirubin Neg (Negative); Blood, Urine 250 (Negative); Clarity Cloudy (Clear); Glucose, Urine (Dipstick) Normal (Negative); Ketone, Urine 15 mg/dL (Negative); Leukocyte 500 (Negative); Nitrite Positive (Negative); Protein, Urine (Dipstick) 500 mg/dl (Neg-Trace); Specific Gravity, Urine 1.025 (1.005-1.030)
[2023-09-06] MEDS ORDERED: NOREPINEPHRINE 8 MG/250 ML-D5W 250 ML ONE (20:28)
[2023-09-06 20:35] LABS: CAUTI Indications for Culture Pelvic or flank pain; RBC/HPF Greater than 50 HPF (0-3); Squamous Epithelial 0-3 HPF (0-3); WBC/HPF Greater than 50 HPF (0-3)
[2023-09-06 20:36] LABS: Bacteria/HPF 2+ HPF (None Seen)
[2023-09-06 20:37] LABS: Urine Culture Reflex Yes Yes
[2023-09-06] MEDS ORDERED: Piperacillin/Tazobactam 3.375 GM VIAL ONE (20:42)
[2023-09-06 20:53] LABS: SARS-CoV-2 NAA Rapid Test Not Detected (NotDetected)
[2023-09-06 20:58] LABS: Eosinophils 3 % (0-10); Lymphocytes 32 % (21-51); Monocytes 4 % (0-10); Neutrophil 60 % (42-75); Reactive Lymphocytes 1 % (0-10)
[2023-09-06 20:59] LABS: Platelet Adequacy Comment Appears Adequate; RBC Morph Comment Within Normal Limits
[2023-09-06] MEDS ORDERED: Communication Order-Pharmacy FS ONE (21:58)
[2023-09-06] MEDS ORDERED: Acetaminophen 325 MG TAB PO PRN (22:02)
[2023-09-06] MEDS ORDERED: Senokot S 8.6-50 MG TAB PO PRN (22:02)
[2023-09-06] MEDS ORDERED: Potassium Chloride 20 MEQ TAB PO SCH (22:30)
[2023-09-06 22:43] LABS: Magnesium 1.6 mg/dL (1.6-2.6)
[2023-09-06] MEDS: Sodium Chloride 0.9% 1,000 ML IV SCH (22:56)
[2023-09-06] MEDS: Vancomycin 1.5 GRAM/300 ML BAG 1.5 GM in Premix 1 BAG IVPB SCH (23:01)
[2023-09-07] MEDS ORDERED: Haloperidol Lactate 5 MG/ML VIAL SLOW IVP SCH (02:45)
[2023-09-07 05:03] LABS: Anion Gap 16 mmol/L (10-20); BUN (Urea Nitrogen) 18 mg/dL (8.4-25.7); Calc. Creatinine Clearance 64 mL/min (70-130); Calcium 8.9 mg/dL (7.8-10.44); Carbon Dioxide 17 mmol/L (23-31); Chloride 109 mmol/L (98-107); Estimated GFR 85; Glucose 86 mg/dL (83-110); Potassium 3.9 mmol/L (3.5-5.1); Sodium 138 mmol/L (136-145)
[2023-09-07 05:16] LABS: Hematocrit 35.8 % (38.8-50.0); Hemoglobin 12.1 g/dL (13.5-17.5); Mean Corpuscular HGB CONC 33.8 g/dL (32.0-36.0); Mean Corpuscular Hemoglobin 32.1 pg (27.0-33.0); Mean Platelet Volume 8.7 fl (7.4-10.4); Platelet Count 209 10x3/uL (150-450); RBC Distribution Width 13.1 % (11.5-14.5); Red Blood Cell (RBC) Count 3.77 10x6/uL (4.32-5.72)
[2023-09-07 05:24] LABS: MDiff Complete? YES
[2023-09-07 06:21] LABS: Eosinophils 4 % (0-10); Lymphocytes 26 % (21-51); Monocytes 8 % (0-10); Neutrophil 62 % (42-75)
[2023-09-07 06:23] LABS: Platelet Adequacy Comment Appears Adequate
[2023-09-07 06:24] LABS: RBC Morph Comment Within Normal Limits
[2023-09-07] MEDS ORDERED: Vancomycin 1 GM in Sodium Chloride 0.9% 250 ML 300 ML IVPB SCH (09:00)
[2023-09-07] MEDS ORDERED: Iopamidol 300 61% 100 ML VIAL FS ONE (09:36)
[2023-09-07] MEDS: Pantoprazole 40 MG VIAL IVP SCH (10:07)
[2023-09-07] MEDS: Cefepime 2 GM in Sodium Chloride 0.9% 100 ML IVPB SCH ×2 (10:08→23:19)
[2023-09-07] MEDS ORDERED: Lorazepam 2 MG/ML VIAL SLOW IVP PRN (10:17)
[2023-09-07] MEDS: Sodium Chloride 0.9% 1,000 ML IV SCH ×3 (15:50→17:24)
[2023-09-07] MEDS: Atorvastatin Calcium 10 MG TAB PO SCH (22:12)
[2023-09-07] MEDS: Vancomycin 1.5 GRAM/300 ML BAG 1.5 GM in Premix 1 BAG IVPB SCH (23:20)
[2023-09-08] MEDS: Sodium Chloride 0.9% 1,000 ML IV SCH ×3 (00:30→15:26)
[2023-09-08] MEDS: Pantoprazole 40 MG VIAL IVP SCH (08:56)
[2023-09-08] MEDS ORDERED: Meropenem 1 GM in Sodium Chloride 0.9% 100 ML IVPB SCH (13:00)
[2023-09-08] MEDS ORDERED: Senokot 8.6 MG TAB PO PRN (13:55)
[2023-09-08] MEDS ORDERED: Meropenem 500 MG in Sodium Chloride 0.9% 100 ML IVPB SCH (14:00)
[2023-09-08] MEDS: Cefepime 2 GM in Sodium Chloride 0.9% 100 ML IVPB SCH (15:26)
[2023-09-08] MEDS: Meropenem 1 GM in Sodium Chloride 0.9% 100 ML IVPB SCH (21:30)
[2023-09-08] MEDS: Atorvastatin Calcium 10 MG TAB PO SCH (21:30)
[2023-09-08 23:29] LABS: Vancomycin, Trough 7.6 ug/mL
[2023-09-09] MEDS: Vancomycin 1 GM in Sodium Chloride 0.9% 250 ML 250 ML IVPB SCH ×2 (00:32→12:01)
[2023-09-09] MEDS: Meropenem 1 GM in Sodium Chloride 0.9% 100 ML IVPB SCH ×3 (04:33→20:29)
[2023-09-09] MEDS: Sodium Chloride 0.9% 1,000 ML IV SCH ×4 (04:49→17:14)
[2023-09-09] MEDS: Pantoprazole 40 MG VIAL IVP SCH (08:49)
[2023-09-09] MEDS: Atorvastatin Calcium 10 MG TAB PO SCH (20:29)
[2023-09-10] MEDS: Vancomycin 1 GM in Sodium Chloride 0.9% 250 ML 250 ML IVPB SCH ×2 (00:51→12:34)
[2023-09-10] MEDS: Meropenem 1 GM in Sodium Chloride 0.9% 100 ML IVPB SCH ×3 (05:17→20:42)
[2023-09-10 05:44] LABS: Hematocrit 33.7 % (38.8-50.0); Hemoglobin 11.9 g/dL (13.5-17.5); Mean Corpuscular HGB CONC 35.3 g/dL (32.0-36.0); Mean Corpuscular Hemoglobin 33.3 pg (27.0-33.0); Mean Corpuscular Volume 94.4 fl (81.2-95.1); Mean Platelet Volume 8.3 fl (7.4-10.4); Platelet Count 150 10x3/uL (150-450); RBC Distribution Width 12.9 % (11.5-14.5); Red Blood Cell (RBC) Count 3.57 10x6/uL (4.32-5.72); White Blood Cell (WBC) Count 9.2 10x3/uL (3.5-10.5)
[2023-09-10 06:00] LABS: Anion Gap 8 mmol/L (10-20); BUN (Urea Nitrogen) 10 mg/dL (8.4-25.7); Calc. Creatinine Clearance 97 mL/min (70-130); Calcium 8.1 mg/dL (7.8-10.44); Carbon Dioxide 22 mmol/L (23-31); Chloride 108 mmol/L (98-107); Estimated GFR 97; Glucose 99 mg/dL (83-110); Magnesium 1.5 mg/dL (1.6-2.6); Potassium 3.2 mmol/L (3.5-5.1); Sodium 135 mmol/L (136-145)
[2023-09-10] MEDS: Sodium Chloride 0.9% 1,000 ML IV SCH (06:33)
[2023-09-10] MEDS ORDERED: Magnesium 2 GM/50 ML(in water) 2 GM in Premix 1 BAG IVPB SCH (08:15)
[2023-09-10] MEDS ORDERED: Potassium Chloride 20 MEQ TAB PO SCH (08:15)
[2023-09-10] MEDS ORDERED: Potassium Bicarbonate/Cit Ac 20 MEQ TAB PO SCH (08:15)
[2023-09-10] MEDS: Pantoprazole 40 MG VIAL IVP SCH (09:21)
[2023-09-10 12:50] LABS: Vancomycin, Trough 11.1 ug/mL
[2023-09-10] MEDS: Atorvastatin Calcium 10 MG TAB PO SCH (20:42)
[2023-09-11] MEDS: Meropenem 1 GM in Sodium Chloride 0.9% 100 ML IVPB SCH ×3 (04:37→21:54)
[2023-09-11 05:02] VITALS: BMI 21.9
[2023-09-11 08:23] LABS: Hematocrit 33.7 % (38.8-50.0); Mean Corpuscular HGB CONC 35.6 g/dL (32.0-36.0); Mean Corpuscular Hemoglobin 33.6 pg (27.0-33.0); Mean Corpuscular Volume 94.4 fl (81.2-95.1); Mean Platelet Volume 8.8 fl (7.4-10.4); Platelet Count 153 10x3/uL (150-450); Red Blood Cell (RBC) Count 3.57 10x6/uL (4.32-5.72); White Blood Cell (WBC) Count 9.9 10x3/uL (3.5-10.5)
[2023-09-11 08:24] LABS: Manual Diff?? YES
[2023-09-11 08:36] LABS: Anion Gap 9 mmol/L (10-20); BUN (Urea Nitrogen) 8 mg/dL (8.4-25.7); Calc. Creatinine Clearance 97 mL/min (70-130); Calcium 8.1 mg/dL (7.8-10.44); Carbon Dioxide 25 mmol/L (23-31); Chloride 106 mmol/L (98-107); Estimated GFR 97; Glucose 98 mg/dL (83-110); Magnesium 1.7 mg/dL (1.6-2.6); Potassium 3.5 mmol/L (3.5-5.1); Sodium 136 mmol/L (136-145)
[2023-09-11 09:07] LABS: Band 2 % (5-11); Eosinophils 1 % (0-10); Lymphocytes 18 % (21-51); Monocytes 3 % (0-10); Neutrophil 75 % (42-75); Platelet Adequacy Comment Appears Adequate; RBC Morph Comment Within Normal Limits; Reactive Lymphocytes 1 % (0-10)
[2023-09-11] MEDS: Atorvastatin Calcium 10 MG TAB PO SCH (21:54)
[2023-09-12] MEDS: Meropenem 1 GM in Sodium Chloride 0.9% 100 ML IVPB SCH ×2 (04:18→12:06)
[2023-09-12 06:08] LABS: Anion Gap 8 mmol/L (10-20); BUN (Urea Nitrogen) 13 mg/dL (8.4-25.7); Calc. Creatinine Clearance 92 mL/min (70-130); Calcium 8.3 mg/dL (7.8-10.44); Carbon Dioxide 24 mmol/L (23-31); Chloride 106 mmol/L (98-107); Estimated GFR 95; Glucose 106 mg/dL (83-110); Magnesium 1.7 mg/dL (1.6-2.6); Potassium 3.2 mmol/L (3.5-5.1); Sodium 135 mmol/L (136-145)
[2023-09-12 06:09] LABS: Hematocrit 30.4 % (38.8-50.0); Hemoglobin 10.7 g/dL (13.5-17.5); Mean Corpuscular HGB CONC 35.2 g/dL (32.0-36.0); Mean Corpuscular Hemoglobin 33.1 pg (27.0-33.0); Mean Corpuscular Volume 94.1 fl (81.2-95.1); Platelet Count 140 10x3/uL (150-450); RBC Distribution Width 13.2 % (11.5-14.5); Red Blood Cell (RBC) Count 3.23 10x6/uL (4.32-5.72); White Blood Cell (WBC) Count 8.1 10x3/uL (3.5-10.5)
[2023-09-12 07:03] LABS: MDiff Complete? YES
[2023-09-12 07:07] LABS: Band 1 % (5-11); Eosinophils 4 % (0-10); Lymphocytes 25 % (21-51); Monocytes 4 % (0-10); Neutrophil 63 % (42-75); Reactive Lymphocytes 3 % (0-10)
[2023-09-12 07:09] LABS: Platelet Adequacy Comment Appears Decreased; RBC Morph Comment Within Normal Limits
[2023-09-12] MEDS ORDERED: Potassium Chloride 20 MEQ TAB PO SCH (07:45)
[2023-09-12] MEDS ORDERED: Fleet Saline Enema 133 ML BOT PR PRN (12:03)
[2023-09-12 16:59] VITALS: BP 149/88; TEMP 97.9
== END 2023-09-12 16:20 | disposition home or self-care (01) | DRG 871 ==
LOC: CSHERS 18:52 → CSHIMCU 20:12 → CSHTELE 09-07 02:11
PROVIDERS: ADMIT Family Medicine; ATTEND Internal Medicine
PROC: 3E03329 Introduction of Other Anti-infective into Peripheral Vein, Percutaneous Approach (ICD-10-PCS; 2023-09-06)
PROC: 02HV33Z Insertion of Infusion Device into Superior Vena Cava, Percutaneous Approach (ICD-10-PCS; principal; 2023-09-10)
PROC: B5181ZA Fluoroscopy of Superior Vena Cava using Low Osmolar Contrast, Guidance (ICD-10-PCS; 2023-09-10)
PROC: B548ZZA Ultrasonography of Superior Vena Cava, Guidance (ICD-10-PCS; 2023-09-10)
DX: A41.52 Sepsis due to Pseudomonas (principal); G93.41 Metabolic encephalopathy; I48.11 Longstanding persistent atrial fibrillation; N39.0 Urinary tract infection, site not specified; N40.0 Benign prostatic hyperplasia without lower urinary tract symptoms; E78.5 Hyperlipidemia, unspecified; K59.00 Constipation, unspecified; D64.9 Anemia, unspecified; N41.9 Inflammatory disease of prostate, unspecified; Z79.01 Long term (current) use of anticoagulants; Z88.5 Allergy status to narcotic agent; Z98.890 Other specified postprocedural states; Z11.52 Encounter for screening for COVID-19; Z79.899 Other long term (current) drug therapy
CPT/HCPCS: 36415; 36569; 70450; 71045; 71260; 74018; 74177; 80048; 80053; 80202; 81001; 83605; 83690; 83735; 83880; 84443; 84484; 85025; 85027; 85610; 85730; 86140; 87040; 87086; 93005; 96361; 96365; C1751; C9113; J0692; J1630; J1650; J2060; J2185; J2543; J3370; J3475; J3490; J7050; Q9967

== ENCOUNTER 2023-11-18 14:59 | Inpatient (IN) | payer BC, MEDICARE ==
[2023-11-18 15:53] LABS: ALT (SGPT) 19 U/L (8-55); AST (SGOT) 22 U/L (5-34); Albumin 3.9 g/dL (3.4-4.8); Alkaline Phosphatase 89 U/L (40-110); Anion Gap 12 mmol/L (10-20); BUN (Urea Nitrogen) 16 mg/dL (8.4-25.7); Bilirubin, Total 2.3 mg/dL (0.2-1.2); Calc. Creatinine Clearance 0 mL/min (70-130); Calcium 9.4 mg/dL (7.8-10.44); Carbon Dioxide 22 mmol/L (23-31); Chloride 103 mmol/L (98-107); Estimated GFR 86; Globulin 2.1 g/dL (2.4-3.5); Glucose 94 mg/dL (83-110); Potassium 4.2 mmol/L (3.5-5.1); Sodium 133 mmol/L (136-145)
[2023-11-18 15:59] LABS: Troponin I Less than 0.010 ng/mL (< 0.028)
[2023-11-18 16:02] LABS: Hematocrit 36.7 % (38.8-50.0); Hemoglobin 12.5 g/dL (13.5-17.5); Mean Corpuscular HGB CONC 34.1 g/dL (32.0-36.0); Mean Corpuscular Hemoglobin 32.6 pg (27.0-33.0); Mean Corpuscular Volume 95.8 fl (81.2-95.1); Mean Platelet Volume 8.1 fl (7.4-10.4); Platelet Count 184 10x3/uL (150-450); RBC Distribution Width 12.8 % (11.5-14.5); Red Blood Cell (RBC) Count 3.83 10x6/uL (4.32-5.72); White Blood Cell (WBC) Count 9.9 10x3/uL (3.5-10.5)
[2023-11-18 16:49] LABS: Band 6 % (5-11); Eosinophils 1 % (0-10); Lymphocytes 22 % (21-51); Monocytes 7 % (0-10); Neutrophil 55 % (42-75); Reactive Lymphocytes 9 % (0-10)
[2023-11-18 16:51] LABS: Platelet Adequacy Comment Appears Adequate; RBC Morph Comment Within Normal Limits
[2023-11-18 16:53] LABS: MDiff Complete? YES
[2023-11-18 17:28] LABS: Bilirubin Neg (Negative); Blood, Urine Negative (Negative); Clarity Clear (Clear); Glucose, Urine (Dipstick) Normal (Negative); Ketone, Urine 15 mg/dL (Negative); Leukocyte 100 (Negative); Nitrite Negative (Negative); Protein, Urine (Dipstick) 15 mg/dl (Neg-Trace); Urobilinogen Normal mg/dL (Less than 2)
[2023-11-18 17:39] LABS: CAUTI Indications for Culture Alt mental st,lethar
[2023-11-18 17:40] LABS: Bacteria/HPF Rare-Few HPF (None Seen); Mucous/LPF 1+ LPF (<2+); Squamous Epithelial 0-3 HPF (0-3); Yeast-Budding Rare HPF (None Seen)
[2023-11-18 17:41] LABS: Calcium Oxalate Crystals 1+ HPF (None Seen)
[2023-11-18 17:44] LABS: Urine Culture Reflex Yes Yes
[2023-11-18] MEDS ORDERED: cefTRIAXone (ROCEPHIN) 2 GM VIAL ONE (18:48)
[2023-11-18 21:50] VITALS: BMI 26.6
[2023-11-18] MEDS: Sodium Chloride 0.9% 1,000 ML IV SCH (22:05)
[2023-11-18] MEDS: Atorvastatin Calcium 10 MG TAB PO SCH (22:05)
[2023-11-18] MEDS: Cefepime 2 GM in Sodium Chloride 0.9% 100 ML IVPB SCH (22:49)
[2023-11-19] MEDS: QUEtiapine 25 MG TAB PO SCH (02:40)
[2023-11-19 04:56] LABS: Anion Gap 11 mmol/L (10-20); BUN (Urea Nitrogen) 14 mg/dL (8.4-25.7); Bilirubin, Total 1.9 mg/dL (0.2-1.2); Calc. Creatinine Clearance 85 mL/min (70-130); Carbon Dioxide 20 mmol/L (23-31); Chloride 104 mmol/L (98-107); Estimated GFR 88; Glucose 88 mg/dL (83-110); Potassium 3.9 mmol/L (3.5-5.1); Sodium 131 mmol/L (136-145)
[2023-11-19 04:58] LABS: Hemoglobin 11.9 g/dL (13.5-17.5); Mean Corpuscular Hemoglobin 32.3 pg (27.0-33.0); Mean Corpuscular Volume 95.1 fl (81.2-95.1); Mean Platelet Volume 7.9 fl (7.4-10.4); Platelet Count 161 10x3/uL (150-450); RBC Distribution Width 12.6 % (11.5-14.5); Red Blood Cell (RBC) Count 3.68 10x6/uL (4.32-5.72)
[2023-11-19 04:59] LABS: MDiff Complete? YES
[2023-11-19 06:13] LABS: Band 6 % (5-11); Eosinophils 4 % (0-10); Lymphocytes 30 % (21-51); Monocytes 12 % (0-10); Neutrophil 38 % (42-75); Reactive Lymphocytes 10 % (0-10)
[2023-11-19 06:16] LABS: Platelet Adequacy Comment Appears Adequate; RBC Morph Comment Within Normal Limits
[2023-11-19] MEDS: pyridOXINE 50 MG (B6) TAB PO SCH (09:58)
[2023-11-19] MEDS: Enoxaparin 40 MG (0.4 mL) SYRINGE SC SCH (09:59)
[2023-11-19] MEDS ORDERED: Labetalol HCl 100 MG/20 ML VIAL SLOW IVP PRN (13:24)
[2023-11-19] MEDS ORDERED: hydrALAZINE 20 MG/ML VIAL SLOW IVP PRN (13:25)
[2023-11-19] MEDS: Haloperidol 1 MG TAB PO SCH (15:00)
[2023-11-19] MEDS: Amlodipine 5 MG TAB PO SCH (15:00)
[2023-11-19] MEDS: Atorvastatin Calcium 10 MG TAB PO SCH (22:23)
[2023-11-19] MEDS: Flecainide 50 MG TAB PO SCH (22:23)
[2023-11-19] MEDS: Tamsulosin HCl 0.4 MG CAP PO SCH (22:23)
[2023-11-19] MEDS: Apixaban 5 MG TAB PO SCH (22:23)
[2023-11-20] MEDS: Ziprasidone 20 MG VIAL IM SCH (02:36)
[2023-11-20] MEDS: Sterile Water 10 ML ONE (02:38)
[2023-11-20 04:27] LABS: Hematocrit 34.6 % (38.8-50.0); Hemoglobin 12.2 g/dL (13.5-17.5); Mean Corpuscular HGB CONC 35.3 g/dL (32.0-36.0); Mean Corpuscular Hemoglobin 33.3 pg (27.0-33.0); Mean Corpuscular Volume 94.5 fl (81.2-95.1); Platelet Count 169 10x3/uL (150-450); RBC Distribution Width 12.3 % (11.5-14.5); Red Blood Cell (RBC) Count 3.66 10x6/uL (4.32-5.72); White Blood Cell (WBC) Count 10.6 10x3/uL (3.5-10.5)
[2023-11-20 04:30] LABS: MDiff Complete? YES
[2023-11-20 04:36] LABS: Anion Gap 13 mmol/L (10-20); BUN (Urea Nitrogen) 16 mg/dL (8.4-25.7); Calc. Creatinine Clearance 85 mL/min (70-130); Calcium 9.2 mg/dL (7.8-10.44); Carbon Dioxide 20 mmol/L (23-31); Chloride 105 mmol/L (98-107); Estimated GFR 88; Glucose 98 mg/dL (83-110); Potassium 3.5 mmol/L (3.5-5.1); Sodium 134 mmol/L (136-145)
[2023-11-20 05:52] LABS: Band 3 % (5-11); Eosinophils 1 % (0-10); Lymphocytes 13 % (21-51); Monocytes 8 % (0-10); Neutrophil 64 % (42-75); Reactive Lymphocytes 11 % (0-10)
[2023-11-20 05:55] LABS: RBC Morph Comment Within Normal Limits
[2023-11-20 05:57] LABS: Platelet Adequacy Comment Appears Adequate
[2023-11-20] MEDS: Amlodipine 5 MG TAB PO SCH (10:11)
[2023-11-21 05:32] LABS: Hemoglobin 11.4 g/dL (13.5-17.5); Mean Corpuscular HGB CONC 34.5 g/dL (32.0-36.0); Mean Corpuscular Hemoglobin 32.7 pg (27.0-33.0); Mean Corpuscular Volume 94.6 fl (81.2-95.1); Platelet Count 171 10x3/uL (150-450); RBC Distribution Width 12.5 % (11.5-14.5); Red Blood Cell (RBC) Count 3.49 10x6/uL (4.32-5.72); White Blood Cell (WBC) Count 9.5 10x3/uL (3.5-10.5)
[2023-11-21 05:39] LABS: Anion Gap 9 mmol/L (10-20); BUN (Urea Nitrogen) 18 mg/dL (8.4-25.7); Calc. Creatinine Clearance 87 mL/min (70-130); Calcium 8.7 mg/dL (7.8-10.44); Carbon Dioxide 20 mmol/L (23-31); Chloride 105 mmol/L (98-107); Estimated GFR 89; Glucose 143 mg/dL (83-110); Sodium 130 mmol/L (136-145)
[2023-11-21 05:43] LABS: Potassium 4.4 mmol/L (3.5-5.1)
[2023-11-21 05:44] LABS: MDiff Complete? YES
[2023-11-21 06:09] LABS: Band 4 % (5-11); Eosinophils 8 % (0-10); Lymphocytes 24 % (21-51); Monocytes 8 % (0-10); Neutrophil 51 % (42-75); Reactive Lymphocytes 5 % (0-10)
[2023-11-21 06:11] LABS: Platelet Adequacy Comment Appears Adequate; RBC Morph Comment Within Normal Limits
[2023-11-21 06:32] LABS: Mean Platelet Volume 8.4 fl (7.4-10.4)
[2023-11-21] MEDS: Acetaminophen 325 MG TAB PO PRN (11:43)
[2023-11-21] MEDS: Polyethylene Glycol 3350 17 GM Packet PO SCH (17:25)
[2023-11-21] MEDS: Doxycycline 100 MG CAP PO SCH (21:13)
[2023-11-22 05:13] LABS: Hematocrit 34.5 % (38.8-50.0); Mean Corpuscular HGB CONC 34.8 g/dL (32.0-36.0); Mean Corpuscular Hemoglobin 32.1 pg (27.0-33.0); Mean Corpuscular Volume 92.2 fl (81.2-95.1); Mean Platelet Volume 8.2 fl (7.4-10.4); Platelet Count 183 10x3/uL (150-450); RBC Distribution Width 12.3 % (11.5-14.5); Red Blood Cell (RBC) Count 3.74 10x6/uL (4.32-5.72); White Blood Cell (WBC) Count 9.3 10x3/uL (3.5-10.5)
[2023-11-22 05:14] LABS: MDiff Complete? YES
[2023-11-22 05:21] LABS: Anion Gap 10 mmol/L (10-20); BUN (Urea Nitrogen) 13 mg/dL (8.4-25.7); Calc. Creatinine Clearance 102 mL/min (70-130); Calcium 8.9 mg/dL (7.8-10.44); Carbon Dioxide 22 mmol/L (23-31); Chloride 102 mmol/L (98-107); Estimated GFR 93; Glucose 117 mg/dL (83-110); Potassium 3.7 mmol/L (3.5-5.1); Sodium 130 mmol/L (136-145)
[2023-11-22 05:58] LABS: Band 4 % (5-11); Eosinophils 2 % (0-10); Lymphocytes 25 % (21-51); Monocytes 5 % (0-10); Neutrophil 52 % (42-75); Reactive Lymphocytes 12 % (0-10)
[2023-11-22 06:00] LABS: Platelet Adequacy Comment Appears Adequate; RBC Morph Comment Within Normal Limits
[2023-11-22] MEDS: Polyethylene Glycol 3350 17 GM Packet PO SCH (09:21)
[2023-11-22] MEDS: Lorazepam 0.5 MG TAB PO SCH (12:48)
[2023-11-22] MEDS: Lorazepam 2 MG/ML VIAL SLOW IVP SCH (13:23)
[2023-11-22] MEDS: Acetaminophen 325 MG TAB PO SCH (18:37)
[2023-11-22 19:47] LABS: ALT (SGPT) 21 U/L (8-55); AST (SGOT) 32 U/L (5-34); Albumin 3.4 g/dL (3.4-4.8); Alkaline Phosphatase 82 U/L (40-110); Bilirubin, Direct 0.5 mg/dL (0.1-0.3); Bilirubin, Total 1.5 mg/dL (0.2-1.2); Protein, Total 5.5 g/dL (5.8-8.1)
[2023-11-22] MEDS: Amlodipine 5 MG TAB PO SCH (22:04)
[2023-11-22] MEDS: Sodium Chloride 1 GM TAB PO SCH (22:06)
[2023-11-23 02:45] LABS: Bilirubin Neg (Negative); Blood, Urine 250 (Negative); Glucose, Urine (Dipstick) Normal (Negative); Ketone, Urine Negative (Negative); Leukocyte 25 (Negative); Nitrite Negative (Negative); Protein, Urine (Dipstick) 30 mg/dl (Neg-Trace); Specific Gravity, Urine 1.005 (1.005-1.030)
[2023-11-23 02:47] LABS: Clarity Cloudy (Clear)
[2023-11-23 02:53] LABS: Bacteria/HPF None Seen HPF (None Seen); RBC/HPF 21-50 HPF (0-3); Squamous Epithelial 0-3 HPF (0-3)
[2023-11-23 04:16] LABS: Anion Gap 11 mmol/L (10-20); BUN (Urea Nitrogen) 10 mg/dL (8.4-25.7); Calc. Creatinine Clearance 99 mL/min (70-130); Calcium 9.3 mg/dL (7.8-10.44); Carbon Dioxide 22 mmol/L (23-31); Chloride 103 mmol/L (98-107); Estimated GFR 92; Glucose 92 mg/dL (83-110); Potassium 3.8 mmol/L (3.5-5.1); Sodium 132 mmol/L (136-145)
[2023-11-23] MEDS: Amlodipine 10 MG TAB PO SCH (09:50)
[2023-11-24 08:48] LABS: ALT (SGPT) 16 U/L (8-55); AST (SGOT) 16 U/L (5-34); Albumin 3.2 g/dL (3.4-4.8); Alkaline Phosphatase 79 U/L (40-110); Anion Gap 12 mmol/L (10-20); BUN (Urea Nitrogen) 14 mg/dL (8.4-25.7); Calc. Creatinine Clearance 87 mL/min (70-130); Calcium 8.9 mg/dL (7.8-10.44); Carbon Dioxide 22 mmol/L (23-31); Chloride 103 mmol/L (98-107); Estimated GFR 89; Globulin 1.9 g/dL (2.4-3.5); Glucose 155 mg/dL (83-110); Potassium 3.6 mmol/L (3.5-5.1); Protein, Total 5.1 g/dL (5.8-8.1); Sodium 133 mmol/L (136-145)
[2023-11-24] MEDS: Sodium Bicarbonate Tab 325 MG TAB PO SCH (09:26)
[2023-11-25 07:19] LABS: Anion Gap 13 mmol/L (10-20); BUN (Urea Nitrogen) 16 mg/dL (8.4-25.7); Calc. Creatinine Clearance 96 mL/min (70-130); Carbon Dioxide 21 mmol/L (23-31); Chloride 103 mmol/L (98-107); Estimated GFR 92; Glucose 101 mg/dL (83-110); Potassium 3.9 mmol/L (3.5-5.1); Sodium 133 mmol/L (136-145)
[2023-11-26 08:42] LABS: Chloride 105 mmol/L (98-107); Potassium 3.9 mmol/L (3.5-5.1); Sodium 134 mmol/L (136-145)
[2023-11-26 09:47] LABS: BUN (Urea Nitrogen) 14 mg/dL (8.4-25.7); Calc. Creatinine Clearance 98 mL/min (70-130); Calcium 9.4 mg/dL (7.8-10.44); Carbon Dioxide 21 mmol/L (23-31); Estimated GFR 92; Glucose 107 mg/dL (83-110)
[2023-11-26 10:34] LABS: Anion Gap 12 mmol/L (10-20)
[2023-11-28 12:20] VITALS: BP 119/59; TEMP 98.1
== END 2023-11-28 13:02 | DRG 71 ==
LOC: CSHERS 14:59 → CSHTELE 21:01 → INTOOBSV 21:01 → OBSVTOIN 11-19 17:00
PROVIDERS: ADMIT Family Medicine; ATTEND Internal Medicine
DX: G93.41 Metabolic encephalopathy (principal); E87.1 Hypo-osmolality and hyponatremia; E87.20 Acidosis, unspecified; N39.0 Urinary tract infection, site not specified; Z66 Do not resuscitate; I48.0 Paroxysmal atrial fibrillation; W19.XXXA Unspecified fall, initial encounter; E78.5 Hyperlipidemia, unspecified; I10 Essential (primary) hypertension; R29.6 Repeated falls; R41.82 Altered mental status, unspecified; R41.89 Other symptoms and signs involving cognitive functions and awareness; S62.102A Fracture of unspecified carpal bone, left wrist, initial encounter for closed fracture; Z98.890 Other specified postprocedural states; Z88.5 Allergy status to narcotic agent; Z79.899 Other long term (current) drug therapy; R33.9 Retention of urine, unspecified; N40.1 Benign prostatic hyperplasia with lower urinary tract symptoms; E80.6 Other disorders of bilirubin metabolism; F03.90 Unspecified dementia, unspecified severity, without behavioral disturbance, psychotic disturbance, mood disturbance, and anxiety
CPT/HCPCS: 36415; 36416; 70450; 71045; 80048; 80053; 80076; 81001; 82247; 83735; 83930; 83935; 84145; 84300; 84484; 85025; 87040; 87086; 93005; 93010; 96372; 96374; 96375; 96376; 97139; G0378; J0692; J0696; J1650; J2060; J3486; J3490; J7050

== ENCOUNTER 2024-04-14 10:33 | Outpatient (CLI) | payer BC, MEDICARE ==
[2024-04-14 13:10] LABS: Hematocrit 36.6 % (38.8-50.0); Hemoglobin 12.7 g/dL (13.5-17.5); Mean Corpuscular HGB CONC 34.7 g/dL (32.0-36.0); Mean Corpuscular Hemoglobin 32.9 pg (27.0-33.0); Mean Corpuscular Volume 94.8 fL (81.2-95.1); Mean Platelet Volume 7.8 fL (7.4-10.4); Platelet Count 204 10x3/uL (150-450); RBC Distribution Width 13.3 % (11.5-14.5); Red Blood Cell (RBC) Count 3.86 10x6/uL (4.32-5.72); White Blood Cell (WBC) Count 5.5 10x3/uL (3.5-10.5)
[2024-04-14 13:18] LABS: INR-International Normal Ratio 1.1; Prothrombin Time 11.7 sec (9.5-12.1)
[2024-04-14 13:28] LABS: ALT (SGPT) 15 U/L (8-55); AST (SGOT) 17 U/L (5-34); Albumin 3.7 g/dL (3.4-4.8); Alkaline Phosphatase 111 U/L (40-110); Anion Gap 11 mmol/L (10-20); BUN (Urea Nitrogen) 17 mg/dL (8.4-25.7); Bilirubin, Total 1.1 mg/dL (0.2-1.2); Calc. Creatinine Clearance 0 mL/min (70-130); Calcium 9.2 mg/dL (7.8-10.44); Carbon Dioxide 22 mmol/L (23-31); Chloride 105 mmol/L (98-107); Estimated GFR 86; Globulin 2.1 g/dL (2.4-3.5); Glucose 90 mg/dL (83-110); Potassium 4.2 mmol/L (3.5-5.1); Protein, Total 5.8 g/dL (5.8-8.1); Sodium 134 mmol/L (136-145)
== END 2024-04-14 10:34 | disposition home or self-care (01) ==
LOC: CSHLAB 10:33
PROVIDERS: ATTEND Specialist
DX: Z01.818 Encounter for other preprocedural examination (principal)
CPT/HCPCS: 80053; 83735; 85027; 85610; 93005; 93010

== ENCOUNTER → 2024-04-15 | Day surgery (SDC) | payer BC, MEDICARE ==
[~2024-04-15] MED LIST changes: -Iopamidol 300 61% 100 ML VIAL FS ONE; +Lidocaine 1% (PF) 30 ML VIAL ONE; +PROPOFOL 200 MG/20 ML VIAL ONE
[2024-04-15 11:27] VITALS: BP 147/55; TEMP 98.9
== END ==
LOC: CSHSDC 10:44
PROVIDERS: ATTEND Specialist
PROC: 5A2204Z Restoration of Cardiac Rhythm, Single (ICD-10-PCS; principal; 2024-04-15)
DX: I48.0 Paroxysmal atrial fibrillation (principal); I48.3 Typical atrial flutter; E78.2 Mixed hyperlipidemia; I10 Essential (primary) hypertension; I44.0 Atrioventricular block, first degree; N40.0 Benign prostatic hyperplasia without lower urinary tract symptoms; R31.9 Hematuria, unspecified; E55.9 Vitamin D deficiency, unspecified; Z98.890 Other specified postprocedural states; Z79.899 Other long term (current) drug therapy; Z88.8 Allergy status to other drugs, medicaments and biological substances; Z79.01 Long term (current) use of anticoagulants
CPT/HCPCS: 92960; 93005; 93010; J2001; J2704

== ENCOUNTER 2024-05-22 18:29 | Emergency (ER) | payer BC, MEDICARE ==
[2024-05-22] MEDS ORDERED: Morphine 4 MG/ML VIAL ONE (19:34)
[2024-05-22] MEDS ORDERED: Ondansetron PF 4 MG/2 ML Vial ONE (19:35)
== END 2024-05-22 20:55 | disposition home or self-care (01) ==
LOC: CSHERS 18:29
DX: S50.01XA Contusion of right elbow, initial encounter (principal); S29.9XXA Unspecified injury of thorax, initial encounter; I10 Essential (primary) hypertension; I48.91 Unspecified atrial fibrillation; W19.XXXA Unspecified fall, initial encounter
CPT/HCPCS: 70450; 71046; 72125; 93005; 93010; 96374; 96375; G0390; J2272; J2405

== ENCOUNTER 2024-08-20 09:47 | Emergency (ER) | payer BC ==
[2024-08-20 11:11] LABS: MDiff Complete? YES
[2024-08-20 11:14] LABS: Bilirubin Neg (Negative); Blood, Urine 10 (Negative); Clarity Clear (Clear); Glucose, Urine (Dipstick) Normal (Negative); Ketone, Urine Negative (Negative); Leukocyte 500 (Negative); Nitrite Negative (Negative); Protein, Urine (Dipstick) 15 mg/dl (Neg-Trace); Specific Gravity, Urine 1.015 (1.005-1.030); Urobilinogen Normal mg/dL (Less than 2); pH, Urine 6.5 (5.0-9.0)
[2024-08-20 11:25] LABS: Bacteria/HPF 1+ HPF (None Seen); CAUTI Indications for Culture Alt mental st,lethar; RBC/HPF 0-3 HPF (0-3); Squamous Epithelial 0-3 HPF (0-3); WBC/HPF 21-50 HPF (0-3); Yeast-Hyphae 2+ HPF (None Seen)
[2024-08-20 11:26] LABS: Urine Culture Reflex Yes Yes
[2024-08-20 11:31] LABS: ALT (SGPT) 16 U/L (8-55); AST (SGOT) 19 U/L (5-34); Albumin 3.6 g/dL (3.4-4.8); Alkaline Phosphatase 75 U/L (40-110); Anion Gap 9 mmol/L (10-20); BUN (Urea Nitrogen) 13 mg/dL (8.4-25.7); Bilirubin, Total 1.5 mg/dL (0.2-1.2); Calc. Creatinine Clearance 0 mL/min (70-130); Calcium 9.5 mg/dL (7.8-10.44); Carbon Dioxide 24 mmol/L (23-31); Chloride 100 mmol/L (98-107); Estimated GFR 81; Globulin 2.1 g/dL (2.4-3.5); Glucose 113 mg/dL (83-110); Hematocrit 36.7 % (38.8-50.0); Hemoglobin 12.9 g/dL (13.5-17.5); Mean Corpuscular HGB CONC 35.1 g/dL (32.0-36.0); Mean Corpuscular Hemoglobin 33.9 pg (27.0-33.0); Mean Corpuscular Volume 96.3 fL (81.2-95.1); Mean Platelet Volume 7.6 fL (7.4-10.4); Platelet Count 183 10x3/uL (150-450); Potassium 3.8 mmol/L (3.5-5.1); Protein, Total 5.7 g/dL (5.8-8.1); RBC Distribution Width 12.7 % (11.5-14.5); Red Blood Cell (RBC) Count 3.81 10x6/uL (4.32-5.72); Sodium 129 mmol/L (136-145); Troponin I Less than 0.010 ng/mL (< 0.028); White Blood Cell (WBC) Count 9.2 10x3/uL (3.5-10.5)
[2024-08-20 11:51] LABS: Band 3 % (5-11); Eosinophils 2 % (0-10); Lymphocytes 45 % (21-51); Monocytes 6 % (0-10); Neutrophil 44 % (42-75)
[2024-08-20] MEDS ORDERED: cefTRIAXone (ROCEPHIN) 2 GM VIAL ONE (12:23)
== END 2024-08-20 16:20 | disposition home or self-care (01) ==
LOC: CSHERS 09:47
DX: N39.0 Urinary tract infection, site not specified (principal); E87.1 Hypo-osmolality and hyponatremia; E78.5 Hyperlipidemia, unspecified; I10 Essential (primary) hypertension
CPT/HCPCS: 70450; 71045; 80053; 81001; 83735; 83880; 84484; 85025; 87086; 93005; 93010; 96374; J0696